=== PATIENT | male | born 2000 | race African-American/Black ===

== ENCOUNTER 2020-05-04 20:14 | Emergency (ER) | payer SELFPAY ==
[~2020-05-04] VITALS: Ht 172.7 cm; Wt 70.3 kg
[2020-05-04] MEDS ORDERED: DIPHENHYDRAMINE HCL 25 MG CAP ONE (20:26)
[2020-05-04] MEDS ORDERED: FAMOTIDINE 20 MG TAB ONE (20:26)
[2020-05-04] MEDS ORDERED: DEXAMETHASONE SOD PHOS 10 MG/1 ML VIAL ONE (20:26)
[2020-05-04] MEDS ORDERED: DEXAMETHASONE SOD PHOS 10 MG/1 ML VIAL IV ONE (20:30)
[2020-05-04] MEDS ORDERED: DIPHENHYDRAMINE HCL 25 MG CAP PO ONE (20:30)
[2020-05-04] MEDS ORDERED: FAMOTIDINE 20 MG TAB PO ONE (20:30)
== END 2020-05-04 21:27 | disposition home or self-care (01) ==
LOC: ER 20:21
DX: S10.96XA Insect bite of unspecified part of neck, initial encounter (principal); S20.369A Insect bite (nonvenomous) of unspecified front wall of thorax, initial encounter; S50.862A Insect bite (nonvenomous) of left forearm, initial encounter; T78.40XA Allergy, unspecified, initial encounter
CPT/HCPCS: 99282; J1100